=== PATIENT | female | born 1975 | race Caucasian/White ===

== ENCOUNTER 2018-05-21 12:53 | Inpatient (IN) | payer OTHER ==
[~2018-05-21] VITALS: Ht 152.4 cm; Wt 85.5 kg
[2018-05-21 14:54] LABS: UA SPECIFIC GRAVITY <=1.005 (1.005-1.035); microscopic required? YES; urine erythrocyte 2+ (NEGATIVE)
[2018-05-21 15:03] LABS: AMPHETAMINE QUAL UR NONE DETECTED (See below)
[2018-05-21 15:51] LABS: ALBUMIN 3.8 g/dL (3.4-5.0); ALKALINE PHOSPHATASE 175 U/L (46-116); ALT/SGPT 151 U/L (14-59); AST/SGOT 121 U/L (15-37); BILIRUBIN TOTAL 0.35 mg/dL (0.20-1.00); CALCIUM 9.5 mg/dL (8.5-10.1); CARBON DIOXIDE 23.1 mmol/L (21-32); CHLORIDE SERUM 131 mmol/L (98-107); CREATININE SERUM 1.7 mg/dL (0.6-1.0); FREE T4 0.92 ng/dL (0.76-1.46); GFR1 35 mL/min; LIPASE 372 IU/L (73-393); TOTAL PROTEIN, SERUM 7.9 g/dL (6.4-8.2)
[2018-05-21 15:55] LABS: SODIUM SERUM 166 mmol/L (136-145)
[2018-05-21 15:56] LABS: POTASSIUM SERUM 2.7 mmol/L (3.5-5.1)
[2018-05-21 16:15] LABS: PLATELET COUNT 239 x10^3mcL (130-400)
[2018-05-21 16:17] LABS: BASOPHIL % 0 % (0-2); RED CELL DISTRIBUTION WIDTH 14.8 % (11.5-14.5)
[2018-05-21 16:27] LABS: GLUCOSE SERUM 891 mg/dL (74-106)
[2018-05-21 16:29] LABS: OSMOLALITY SERUM 415 mOsm/kg (278-298)
[2018-05-21 17:22] LABS: AMYLASE 28 U/L (25-115); PHOSPHOROUS 1.2 mg/dL (2.5-4.9)
[2018-05-21 17:29] LABS: CHOLESTEROL 245 mg/dL (<200); CHOLESTEROL/HDL RATIO 11.7; HDL CHOLESTEROL 21 mg/dL (40-60); TRIGLYCERIDES 1685 mg/dL (<150)
[2018-05-21 19:35] VITALS: BP 122/83
[2018-05-21 19:50] LABS: CALCIUM 9.5 mg/dL (8.5-10.1); CARBON DIOXIDE 17.7 mmol/L (21-32); CREATININE SERUM 1.6 mg/dL (0.6-1.0); MAGNESIUM 2.9 mg/dL (1.8-2.4); PHOSPHOROUS 1.2 mg/dL (2.5-4.9)
[2018-05-21 19:54] LABS: POTASSIUM SERUM 3.3 mmol/L (3.5-5.1)
[2018-05-21 23:37] VITALS: BP 113/87
[2018-05-22 00:33] LABS: CALCIUM 8.4 mg/dL (8.5-10.1); CARBON DIOXIDE 13.8 mmol/L (21-32); CREATININE SERUM 1.9 mg/dL (0.6-1.0); MAGNESIUM 3.1 mg/dL (1.8-2.4)
[2018-05-22 02:08] LABS: POTASSIUM SERUM 2.3 mmol/L (3.5-5.1)
[2018-05-22 02:09] LABS: PHOSPHOROUS 0.6 mg/dL (2.5-4.9)
[2018-05-22 03:00] VITALS: BP 103/70
[2018-05-22 05:13] LABS: CALCIUM 8.5 mg/dL (8.5-10.1); CARBON DIOXIDE 11.4 mmol/L (21-32); CREATININE SERUM 1.9 mg/dL (0.6-1.0); MAGNESIUM 3.3 mg/dL (1.8-2.4)
[2018-05-22 05:17] LABS: PHOSPHOROUS 0.5 mg/dL (2.5-4.9)
[2018-05-22 05:18] LABS: POTASSIUM SERUM 2.3 mmol/L (3.5-5.1)
[2018-05-22 06:42] LABS: PLATELET COUNT 249 x10^3mcL (130-400)
[2018-05-22 06:51] LABS: BASOPHIL % 0 % (0-2); RED CELL DISTRIBUTION WIDTH 15.3 % (11.5-14.5)
[2018-05-22 07:50] VITALS: BP 136/73
[2018-05-22 09:30] LABS: CALCIUM 9.7 mg/dL (8.5-10.1); CARBON DIOXIDE 10.7 mmol/L (21-32); MAGNESIUM 3.3 mg/dL (1.8-2.4)
[2018-05-22 10:03] LABS: POTASSIUM SERUM 2.8 mmol/L (3.5-5.1)
[2018-05-22 12:40] VITALS: BP 127/72
[2018-05-22 13:46] LABS: CALCIUM 9.8 mg/dL (8.5-10.1); PHOSPHOROUS 2.4 mg/dL (2.5-4.9); POTASSIUM SERUM 3.1 mmol/L (3.5-5.1)
[2018-05-22 13:59] LABS: CARBON DIOXIDE 17.4 mmol/L (21-32)
[2018-05-22 14:08] LABS: MAGNESIUM 4.2 mg/dL (1.8-2.4)
[2018-05-22 16:05] VITALS: BP 106/69
[2018-05-22 17:06] LABS: CALCIUM 8.8 mg/dL (8.5-10.1); CARBON DIOXIDE 15.8 mmol/L (21-32); CREATININE SERUM 2.3 mg/dL (0.6-1.0); PHOSPHOROUS 3.1 mg/dL (2.5-4.9); POTASSIUM SERUM 3.1 mmol/L (3.5-5.1)
[2018-05-22 22:36] LABS: CALCIUM 7.3 mg/dL (8.5-10.1); CARBON DIOXIDE 13.1 mmol/L (21-32); CREATININE SERUM 2.4 mg/dL (0.6-1.0); MAGNESIUM 3.1 mg/dL (1.8-2.4); PHOSPHOROUS 2.9 mg/dL (2.5-4.9); POTASSIUM SERUM 3.7 mmol/L (3.5-5.1)
[2018-05-22 23:49] LABS: CALCIUM 7.2 mg/dL (8.5-10.1); CARBON DIOXIDE 13.6 mmol/L (21-32); CREATININE SERUM 2.3 mg/dL (0.6-1.0); MAGNESIUM 2.9 mg/dL (1.8-2.4); PHOSPHOROUS 2.9 mg/dL (2.5-4.9); POTASSIUM SERUM 3.4 mmol/L (3.5-5.1)
[2018-05-23 04:30] LABS: CALCIUM 7.6 mg/dL (8.5-10.1); CARBON DIOXIDE 17.3 mmol/L (21-32); CREATININE SERUM 2.4 mg/dL (0.6-1.0); MAGNESIUM 2.8 mg/dL (1.8-2.4); POTASSIUM SERUM 3.4 mmol/L (3.5-5.1)
[2018-05-23 06:03] LABS: BASOPHIL % 0.4 % (0-2); PLATELET COUNT 157 x10^3mcL (130-400)
[2018-05-23 06:05] LABS: RED CELL DISTRIBUTION WIDTH 15.6 % (11.5-14.5)
[2018-05-23 07:55] VITALS: BP 140/42
[2018-05-23 08:55] LABS: CALCIUM 7.6 mg/dL (8.5-10.1); CARBON DIOXIDE 16.6 mmol/L (21-32); CREATININE SERUM 2.4 mg/dL (0.6-1.0); MAGNESIUM 2.7 mg/dL (1.8-2.4); PHOSPHOROUS 3.4 mg/dL (2.5-4.9); POTASSIUM SERUM 3.6 mmol/L (3.5-5.1)
[2018-05-23 12:25] VITALS: BP 98/69
[2018-05-23 12:37] LABS: CALCIUM 7.5 mg/dL (8.5-10.1); CARBON DIOXIDE 20.4 mmol/L (21-32); CREATININE SERUM 2.5 mg/dL (0.6-1.0); MAGNESIUM 2.5 mg/dL (1.8-2.4); POTASSIUM SERUM 3.7 mmol/L (3.5-5.1)
[2018-05-23 14:16] VITALS: BP 98/69
[2018-05-23 16:30] VITALS: BP 100/60
[2018-05-23 16:59] LABS: CARBON DIOXIDE 20.6 mmol/L (21-32); CREATININE SERUM 2.5 mg/dL (0.6-1.0); MAGNESIUM 2.3 mg/dL (1.8-2.4); PHOSPHOROUS 2.6 mg/dL (2.5-4.9); POTASSIUM SERUM 3.6 mmol/L (3.5-5.1)
[2018-05-23 19:43] VITALS: BP 110/71
[2018-05-23 20:21] LABS: CALCIUM 6.9 mg/dL (8.5-10.1); CARBON DIOXIDE 21.5 mmol/L (21-32); CREATININE SERUM 2.5 mg/dL (0.6-1.0); MAGNESIUM 2.4 mg/dL (1.8-2.4); PHOSPHOROUS 3.2 mg/dL (2.5-4.9); POTASSIUM SERUM 3.5 mmol/L (3.5-5.1)
[2018-05-23 23:41] VITALS: BP 108/75
[2018-05-24 03:23] VITALS: BP 131/90
[2018-05-24 05:07] LABS: BASOPHIL % 0.3 % (0-2)
[2018-05-24 05:08] LABS: PLATELET COUNT 129 x10^3mcL (130-400)
[2018-05-24 07:04] LABS: CALCIUM 6.9 mg/dL (8.5-10.1); CARBON DIOXIDE 21.1 mmol/L (21-32); CREATININE SERUM 2.2 mg/dL (0.6-1.0); MAGNESIUM 2.5 mg/dL (1.8-2.4); PHOSPHOROUS 3.5 mg/dL (2.5-4.9); POTASSIUM SERUM 3.7 mmol/L (3.5-5.1)
[2018-05-24 07:21] VITALS: BP 125/66
[2018-05-24 09:11] VITALS: Ht 152.4 cm; Wt 85.5 kg
[2018-05-24 11:46] VITALS: BP 106/75
[2018-05-24 15:31] VITALS: BP 93/60
[2018-05-24 19:50] VITALS: BP 104/70
[2018-05-25 06:05] VITALS: BP 111/75
[2018-05-25 06:57] LABS: CALCIUM 7.7 mg/dL (8.5-10.1); CARBON DIOXIDE 23.1 mmol/L (21-32); CREATININE SERUM 1.6 mg/dL (0.6-1.0); POTASSIUM SERUM 3.2 mmol/L (3.5-5.1)
[2018-05-25 07:57] LABS: BASOPHIL % 0.5 % (0-2); PLATELET COUNT 121 x10^3mcL (130-400); RED CELL DISTRIBUTION WIDTH 15.5 % (11.5-14.5)
[2018-05-25 09:10] VITALS: BP 102/66
[2018-05-25 12:13] VITALS: BP 98/54
[2018-05-25 17:31] VITALS: BP 99/68
[2018-05-25 19:05] LABS: UA SPECIFIC GRAVITY <=1.005 (1.005-1.035); microscopic required? YES; urine erythrocyte 3+ (NEGATIVE)
[2018-05-25 21:23] VITALS: BP 98/55
[2018-05-26 05:47] VITALS: BP 94/62
[2018-05-26 06:45] LABS: BASOPHIL % 0.5 % (0-2)
[2018-05-26 06:52] LABS: PLATELET COUNT 114 x10^3mcL (130-400); RED CELL DISTRIBUTION WIDTH 15.7 % (11.5-14.5)
[2018-05-26 07:09] LABS: CALCIUM 8.1 mg/dL (8.5-10.1); CARBON DIOXIDE 22.2 mmol/L (21-32); CREATININE SERUM 1.4 mg/dL (0.6-1.0); MAGNESIUM 2.8 mg/dL (1.8-2.4); PHOSPHOROUS 2.9 mg/dL (2.5-4.9); POTASSIUM SERUM 3.4 mmol/L (3.5-5.1)
[2018-05-26 09:38] VITALS: BP 99/78
[2018-05-26 13:10] VITALS: BP 95/75
[2018-05-26 17:06] VITALS: BP 109/71
[2018-05-26 21:09] VITALS: BP 101/69
[2018-05-27 03:17] VITALS: BP 100/69
[2018-05-27 05:44] VITALS: BP 105/72
[2018-05-27 06:30] LABS: BASOPHIL % 0.1 % (0-2)
[2018-05-27 06:37] LABS: CALCIUM 8.7 mg/dL (8.5-10.1); CARBON DIOXIDE 22.5 mmol/L (21-32); CREATININE SERUM 1.3 mg/dL (0.6-1.0); MAGNESIUM 2.6 mg/dL (1.8-2.4); POTASSIUM SERUM 4.5 mmol/L (3.5-5.1)
[2018-05-27 08:52] LABS: RED CELL DISTRIBUTION WIDTH 14.9 % (11.5-14.5)
[2018-05-27 08:54] LABS: PLATELET COUNT 131 x10^3mcL (130-400)
[2018-05-27 09:36] VITALS: BP 94/63
[2018-05-27 13:27] VITALS: BP 100/65
[2018-05-27 17:03] VITALS: BP 106/69
[2018-05-27 20:44] VITALS: BP 110/62
[2018-05-28 05:20] VITALS: BP 108/75
[2018-05-28 06:38] LABS: BASOPHIL % 0.1 % (0-2)
[2018-05-28 06:45] LABS: PLATELET COUNT 115 x10^3mcL (130-400); RED CELL DISTRIBUTION WIDTH 14.7 % (11.5-14.5)
[2018-05-28 08:10] LABS: CARBON DIOXIDE 19.6 mmol/L (21-32); CREATININE SERUM 1.6 mg/dL (0.6-1.0); MAGNESIUM 2.6 mg/dL (1.8-2.4); PHOSPHOROUS 4.9 mg/dL (2.5-4.9); POTASSIUM SERUM 3.3 mmol/L (3.5-5.1)
[2018-05-28 09:14] VITALS: BP 111/76
[2018-05-28 12:39] VITALS: BP 113/72
[2018-05-28 16:46] VITALS: BP 106/76
[2018-05-28 20:44] VITALS: BP 101/68
[2018-05-29 05:31] VITALS: BP 98/65
[2018-05-29 05:46] LABS: BASOPHIL % 0.3 % (0-2)
[2018-05-29 05:50] LABS: PLATELET COUNT 123 x10^3mcL (130-400)
[2018-05-29 05:54] LABS: CALCIUM 8.8 mg/dL (8.5-10.1); CARBON DIOXIDE 21.7 mmol/L (21-32); CREATININE SERUM 1.4 mg/dL (0.6-1.0); MAGNESIUM 2.4 mg/dL (1.8-2.4); PHOSPHOROUS 4.4 mg/dL (2.5-4.9); POTASSIUM SERUM 3.8 mmol/L (3.5-5.1)
[2018-05-29 08:37] VITALS: BP 123/76
[2018-05-29 11:37] VITALS: BP 111/79
[2018-05-29 16:12] VITALS: BP 116/87
[2018-05-29 20:38] VITALS: BP 109/79
[2018-05-30 05:44] VITALS: BP 105/75
[2018-05-30 08:57] LABS: BASOPHIL % 0.5 % (0-2); PLATELET COUNT 153 x10^3mcL (130-400); RED CELL DISTRIBUTION WIDTH 14.1 % (11.5-14.5)
[2018-05-30 09:02] VITALS: BP 113/81
[2018-05-30 09:20] LABS: CALCIUM 9.7 mg/dL (8.5-10.1); CREATININE SERUM 1.4 mg/dL (0.6-1.0); POTASSIUM SERUM 4.1 mmol/L (3.5-5.1)
[2018-05-30 09:23] LABS: MAGNESIUM 2.6 mg/dL (1.8-2.4); PHOSPHOROUS 4.1 mg/dL (2.5-4.9)
[2018-05-30 12:02] VITALS: BP 118/79
[2018-05-30 16:20] VITALS: BP 114/72
[2018-05-30 18:44] LABS: BILIRUBIN TOTAL 0.33 mg/dL (0.20-1.00); CALCIUM 9.5 mg/dL (8.5-10.1); CARBON DIOXIDE 25.8 mmol/L (21-32); CREATININE SERUM 1.3 mg/dL (0.6-1.0); POTASSIUM SERUM 3.2 mmol/L (3.5-5.1); TOTAL PROTEIN, SERUM 7.2 g/dL (6.4-8.2)
[2018-05-30 21:07] VITALS: BP 121/75
[2018-05-31 05:33] VITALS: BP 108/70
[2018-05-31 06:48] LABS: CALCIUM 9.8 mg/dL (8.5-10.1); CARBON DIOXIDE 21.8 mmol/L (21-32); CREATININE SERUM 1.3 mg/dL (0.6-1.0); MAGNESIUM 2.7 mg/dL (1.8-2.4); PHOSPHOROUS 2.9 mg/dL (2.5-4.9); POTASSIUM SERUM 3.7 mmol/L (3.5-5.1)
[2018-05-31 06:57] LABS: BASOPHIL % 0.2 % (0-2); PLATELET COUNT 176 x10^3mcL (130-400)
[2018-05-31 07:09] LABS: RED CELL DISTRIBUTION WIDTH 14.7 % (11.5-14.5)
[2018-05-31 09:45] VITALS: BP 118/75
[2018-05-31 14:10] VITALS: BP 125/76
[2018-05-31 14:38] LABS: CALCIUM 8.2 mg/dL (8.5-10.1); CARBON DIOXIDE 22.2 mmol/L (21-32); CREATININE SERUM 1.2 mg/dL (0.6-1.0); POTASSIUM SERUM 3.3 mmol/L (3.5-5.1)
[2018-05-31 18:03] VITALS: BP 128/78
[2018-05-31 20:41] VITALS: BP 106/71
[2018-06-01 06:05] VITALS: BP 111/64
[2018-06-01 06:14] LABS: BASOPHIL % 0.1 % (0-2); PLATELET COUNT 166 x10^3mcL (130-400)
[2018-06-01 06:50] LABS: CALCIUM 8.7 mg/dL (8.5-10.1); CARBON DIOXIDE 22.6 mmol/L (21-32); CREATININE SERUM 1.1 mg/dL (0.6-1.0); POTASSIUM SERUM 3.2 mmol/L (3.5-5.1)
[2018-06-01 07:16] LABS: RED CELL DISTRIBUTION WIDTH 14.6 % (11.5-14.5)
[2018-06-01 09:24] VITALS: BP 123/77
[2018-06-01] MEDS ORDERED: LEVEMIR100 U/M1 SC (11:16)
[2018-06-01 12:42] VITALS: BP 109/79
[2018-06-01 17:06] VITALS: BP 122/78
[2018-06-01 21:32] VITALS: BP 98/63
[2018-06-02 05:55] VITALS: BP 112/74
[2018-06-02 08:39] LABS: CALCIUM 8.3 mg/dL (8.5-10.1); CARBON DIOXIDE 23.6 mmol/L (21-32); CHLORIDE SERUM 104 mmol/L (98-107); CREATININE SERUM 0.9 mg/dL (0.6-1.0); GFR1 > 60 mL/min; GLUCOSE SERUM 167 mg/dL (74-106); POTASSIUM SERUM 3.6 mmol/L (3.5-5.1); SODIUM SERUM 139 mmol/L (136-145)
[2018-06-02 08:47] LABS: BASOPHIL % 0.3 % (0-2); PLATELET COUNT 189 x10^3mcL (130-400)
[2018-06-02 08:51] LABS: RED CELL DISTRIBUTION WIDTH 14.7 % (11.5-14.5)
[2018-06-02 09:40] VITALS: BP 112/77
[2018-06-02 13:29] VITALS: BP 109/76
[2018-06-02 13:47] VITALS: BP 109/76
== END 2018-06-02 16:35 | disposition home or self-care (01) | DRG 871 ==
LOC: ED 12:53 → DU 15:54 → IC 15:54 → DU 05-24 19:38
PROVIDERS: Emergency Medicine; Family Medicine; Internal Medicine; Internal Medicine Infectious Disease
PROC: 05HM33Z Insertion of Infusion Device into Right Internal Jugular Vein, Percutaneous Approach (ICD-10-PCS; principal; 2018-05-22)
PROC: B543ZZA Ultrasonography of Right Jugular Veins, Guidance (ICD-10-PCS; 2018-05-22)
DX: A41.9 Sepsis, unspecified organism (principal); E11.00 Type 2 diabetes mellitus with hyperosmolarity without nonketotic hyperglycemic-hyperosmolar coma (NKHHC); G93.41 Metabolic encephalopathy; N17.0 Acute kidney failure with tubular necrosis; J96.01 Acute respiratory failure with hypoxia; E11.10 Type 2 diabetes mellitus with ketoacidosis without coma; J69.0 Pneumonitis due to inhalation of food and vomit; E87.0 Hyperosmolality and hypernatremia; K56.7 Ileus, unspecified; E87.2 Acidosis; G72.81 Critical illness myopathy; R65.20 Severe sepsis without septic shock; E11.65 Type 2 diabetes mellitus with hyperglycemia; E11.21 Type 2 diabetes mellitus with diabetic nephropathy; G47.33 Obstructive sleep apnea (adult) (pediatric); E87.6 Hypokalemia; E86.0 Dehydration; E83.39 Other disorders of phosphorus metabolism; E78.1 Pure hyperglyceridemia; I12.9 Hypertensive chronic kidney disease with stage 1 through stage 4 chronic kidney disease, or unspecified chronic kidney disease; N18.3 Chronic kidney disease, stage 3 (moderate); R74.0 Nonspecific elevation of levels of transaminase and lactic acid dehydrogenase [LDH]; E66.9 Obesity, unspecified; Z68.38 Body mass index [BMI] 38.0-38.9, adult
CPT/HCPCS: 36556; 36600; 82962; 83880; 84439; 86644; 86645; 94150; 97110-GP; 97116-GP; 97530-GP; 97535-GP; G0480; J1170; J1450; J1642; J1815; J1885; J1956; J2001; J2060; J2405; J2543; J2597; J2765; J3370; J3480; J3490; J7030; J7040; J7042; J7060; J7070; J7620; J8597; Q0092

== ENCOUNTER 2018-10-26 13:07 | Inpatient (IN) | payer MEDICAID ==
[~2018-10-26] VITALS: Ht 149.9 cm; Wt 69.9 kg
[~2018-10-26 13:07] MED LIST: LEVEMIR100 U/M1 SC
[2018-10-26 13:28] VITALS: Ht 149.9 cm; Wt 69.9 kg
--- NOTE | 2018-10-26 14:00 | NUR ---
PT TO ED FOR EVAL OF INCREASED GENERALIZED WEAKNESS WITH NAUSEA AND VOMITING X 6 DAYS. PT STATES SHE HAS ALSO HAD AN INCREASE IN THIRST WITH INCREASE IN URINATION. SHE ALSO STATES SHE HAS HAD INTENSE VAGINAL ITCHING. SKINS APPEAR WARMD AND DRY. LIPS APPEAR DRY WITH. PT AWAKE AND ALERT.BREATHING UNLABORED. MSE COMPLETED BY DR. ELIZABETH.
--- NOTE | 2018-10-26 15:04 | NUR ---
PT AMBULATED TO AND FROM BATHROOM WITH STEADY GAIT. STATES SHE IS FEELING "A LITTLE BETTER" REQUESTING WATER. ICE CHIPS APPROVED BY DR. ELIZABETH. PT GIVEN ICE CHIPS. PT PLACED BACK ON CM. NO DISTRESS.
[2018-10-26 15:33] LABS: UA SPECIFIC GRAVITY <=1.005 (1.005-1.035); microscopic required? YES; urine erythrocyte 3+ (NEGATIVE)
--- NOTE | 2018-10-26 16:10 | NUR ---
PT REMAINS AWAKE ALERT AND ORIENTED. BREATHING UNLABORD. PT AMBULATED TO BATHROOM WITH STEADY GAIT. ACCOMPANIED BY .
--- NOTE | 2018-10-26 16:23 | NUR ---
PT RETURNED FROM BATHROOM. PLACED BACK ON .
[2018-10-26 16:33] LABS: BASOPHIL % 0.2 % (0-2); PLATELET COUNT 131 x10^3mcL (130-400)
[2018-10-26 16:40] LABS: RED CELL DISTRIBUTION WIDTH 14.7 % (11.5-14.5)
--- NOTE | 2018-10-26 17:03 | NUR ---
RESTING COMFORTABLY ON GURNEY BREATHING EVEN UNLABORED. NO DISTRESS. AT BEDSIDE. CONTINUE TO MONITOR.
[2018-10-26 17:06] LABS: ALBUMIN 3.4 g/dL (3.4-5.0); BILIRUBIN TOTAL 0.51 mg/dL (0.20-1.00); CALCIUM 9.1 mg/dL (8.5-10.1); CARBON DIOXIDE 25.6 mmol/L (21-32); CREATININE SERUM 1.5 mg/dL (0.6-1.0); POTASSIUM SERUM 4.2 mmol/L (3.5-5.1)
[2018-10-26 17:09] LABS: TOTAL PROTEIN, SERUM 8.5 g/dL (6.4-8.2)
--- NOTE | 2018-10-26 18:56 | NUR ---
PT SLEEPING AT THIS TIME. BREATHING EVEN UNLABORED. IV INSULIN DRIP INFUSING. NO S/S OF INFILTRATION. FAMILY MEMBER AT BEDSIDE.
[2018-10-26] MEDS ORDERED: METFORMIN HCL1000 MG PO (19:12)
--- NOTE | 2018-10-26 19:16 | NUR ---
RECIEVED PT REPORT FROM PIA HODGES TO RESUME PRIMARY CARE
[2018-10-26 19:25] LABS: CHOLESTEROL 224 mg/dL (<200); HDL CHOLESTEROL 16 mg/dL (40-60); TRIGLYCERIDES 1304 mg/dL (<150)
--- NOTE | 2018-10-26 19:30 | NUR ---
PT ABLE TO AMBULATE TO RESTROOM WITH ASSITANCE FROM FAMILY.
--- NOTE | 2018-10-26 19:39 | NUR ---
PT LAYING IN ED GURNEY. PT IS ASLEEP BUT EASILY AROUSABLE. PT RESPS ARE E/U. PT HAS COMFORT MEASURES IN PLACE. NO DISTRESS NOTED
--- NOTE | 2018-10-26 20:23 | NUR ---
CALLED AND GAVE REPROT TO RN FOR PT TO BE ADMITTED TO ICU
[2018-10-26 20:29] LABS: CALCIUM 9.2 mg/dL (8.5-10.1); CREATININE SERUM 1.5 mg/dL (0.6-1.0); MAGNESIUM 2.8 mg/dL (1.8-2.4); PHOSPHOROUS 1.4 mg/dL (2.5-4.9); POTASSIUM SERUM 3.1 mmol/L (3.5-5.1)
--- NOTE | 2018-10-26 20:30 | NUR ---
PT TRANSFERRED FROM ER VIA [facility] ACCOMPANIED BY RN AND EMT. PT AMBULATED TO ICU BED WITH ASSISTANCE, STEADY GAIT NOTED. PT IS DROWSY BUT AROUSABLE. AZERI SPEAKING. FAMILY MEMBERS AT BEDSIDE. VITAL SIGNS UPON ARRIVAL TEMP 101.6, B/P 122/68 MAP 84, HR 131, RR 20, O2 SAT 97% ON ROOM AIR. COOLING MEASURES IN PLACE, TYLENOL PROVIDED. C/O 8/10 BLQ ABD PAIN. ABD DISTENDED, SOFT, TENDER TO TOUCH. DENIES ANY N/V/D AT THIS TIME. PT GROANING D/T PAIN AND FEELING UNCOMFORTABLE. NO SOB NOTED, RESPS E/U ON ROOM AIR. CHEST RISE EQUAL AND SYMMETRICAL. LUNG SOUNDS CLEAR BRODY. SKIN INTACT. IV TO L HAND G 20 AND RAC G 20 INTACT AND PATENT, DSG CDI. IVF NS INFUSING @ 250 ML/HR. INSULIN GTT INFUSING @ 0.1 UNITS/KG/HR. GEN WEAKNESS NOTED. ABLE TO MOVE ALL EXT. VOIDS FREELY TO BSC. PT ABLE TO REPOSITION SELF. PT TEACHING PROVIDED REGARDING DKA PROTOCOL AND PLAN OF CARE, VERBALIZED UNDERSTANDING. INSTRUCTED TO CALL FOR ANY ASSISTANCE. CALL LIGHT WITHIN REACH. WILL CONTINUE TO MONITOR.
--- NOTE | 2018-10-26 20:35 | NUR ---
PT ADMITTED TO ICU. PT WHEELED OUT OF ED VIA ED GURNEY. PT WAS ESCORTED BY EMT AND RN. NO INCIDENCE NOTED
--- NOTE | 2018-10-26 21:10 | NUR ---
PT AWAKE, ASSISTED TO BSC TO VOID. NOTED WITH HEMATURIA. PT STATES NOT HAVING MENSTRUAL PERIOD AND MIGHT BE GOING THROUGH MENOPAUSE. DR RUIZ MADE AWARE.
[2018-10-26 21:28] VITALS: BP 122/68
--- NOTE | 2018-10-26 21:30 | NUR ---
DR RUIZ MADE AWARE REGADING ELEVATED NA LEVEL AND K+ LEVEL. DR RUIZ STATES OKAY TO GIVE FREE H20
--- NOTE | 2018-10-26 21:45 | NUR ---
PT WITH C/O VAGINAL BURINIG, ITCHING, AND BLOODY URINE, BLQ PAIN WITH DISTENDED ABD. DR RUIZ MADE AWARE REGARDING POSITIVE UA FOR BACTERIA AND FEVER. DR RUIZ STATES WILL ORDER ATB AND SEE PATIENT.
--- NOTE | 2018-10-26 22:00 | NUR ---
DR RUIZ AT BEDSIDE, UPDATED ON STATUS, EXPLAINED TO PT PLAN OF CARE DURING STAY AND ALL QUESTIONS AND CONCERNS ADDRESSED.
--- NOTE | 2018-10-26 22:51 | NUR ---
BS 174, PT PROVIDED SANDWICH, ALEJA CRACKERS, AND APPLE JUICE. ATE 100% WITHOUT ANY DIFFICULTY. DR RUIZ MADE AWARE TO CHANGE IVF.
[2018-10-26 23:51] VITALS: BP 98/66
--- NOTE | 2018-10-27 00:03 | NUR ---
PT ASSISTED TO BSC, SOFT BROWN BM NOTED.
--- NOTE | 2018-10-27 00:03 | NUR ---
LAB AT BEDSIDE
--- NOTE | 2018-10-27 00:15 | NUR ---
BS 453, DR RUIZ MADE AWARE. ORDER GIVEN TO KEEP PT NPO, INCREASE INSULIN GTT TO 0.1 UNITS/KG/HR, CHANGE IVF TO 1/2 NS @ 250ML/HR.
[2018-10-27 01:09] LABS: CALCIUM 8.8 mg/dL (8.5-10.1); CARBON DIOXIDE 20.9 mmol/L (21-32); CREATININE SERUM 1.5 mg/dL (0.6-1.0); MAGNESIUM 2.2 mg/dL (1.8-2.4); PHOSPHOROUS 1.6 mg/dL (2.5-4.9); POTASSIUM SERUM 3.3 mmol/L (3.5-5.1)
[2018-10-27 03:18] VITALS: BP 98/66
--- NOTE | 2018-10-27 04:13 | NUR ---
BS 174, IVF CHANGED TO D5W @ 150ML/HR, INSULIN GTT TITRATED TO 0.05 UNITS/KG/HR. DR RUIZ MADE AWARE.
[2018-10-27 05:00] LABS: CALCIUM 8.7 mg/dL (8.5-10.1); CREATININE SERUM 1.2 mg/dL (0.6-1.0); MAGNESIUM 2.4 mg/dL (1.8-2.4); PHOSPHOROUS 1.6 mg/dL (2.5-4.9); POTASSIUM SERUM 3.6 mmol/L (3.5-5.1)
--- NOTE | 2018-10-27 07:33 | NUR ---
PT WAS ABLE TO AMBULATE WITH STEADY GAIT TO SINK FOR MORNING CARE AND BEDSIDE COMMODE. SET BREAKFAST TRAY AT BEDSIDE. AT BEDSIDE.
[2018-10-27 08:10] VITALS: BP 113/67
[2018-10-27 08:41] LABS: BASOPHIL % 0.3 % (0-2)
[2018-10-27 08:50] LABS: PLATELET COUNT 125 x10^3mcL (130-400)
--- NOTE | 2018-10-27 08:54 | NUR ---
PATIENT'S BEDSIDE GLUCOSE 323. IVF OF D5W TITRATED FROM 100 ML/HR TO 75 ML/HR. PATIENT ENCOURAGED TO DRINK PLENTY OF WATER.
[2018-10-27 08:59] LABS: CALCIUM 9.3 mg/dL (8.5-10.1); CARBON DIOXIDE 25.6 mmol/L (21-32); CREATININE SERUM 1.2 mg/dL (0.6-1.0); POTASSIUM SERUM 4.3 mmol/L (3.5-5.1)
--- NOTE | 2018-10-27 09:00 | NUR ---
PATIENT ASSISTED TO BEDSIDE COMMODE WITHOUT INCIDENT. PATIENT REQUESTING MEDICATION FOR VAGINAL DISCOMFORT.
--- NOTE | 2018-10-27 09:40 | NUR ---
INSULIN DRIP OFF, SWITCHED D5W TO 1/2NS AT 125ML/HR TO AND.
--- NOTE | 2018-10-27 10:25 | NUR ---
DR. SALINAS AT BEDSIDE, ASSESSING PT AND UPDATING PLAN OF CARE. PT WILL BE TRANSFER TO [facility].
--- NOTE | 2018-10-27 12:00 | NUR ---
REPORT GIVEN TO RUTH HODGES, PT WILL BE TRANSFERRING TO M/S TO ROOM 256B BY WHEEL CHAIR ON ROOM AIR.
[2018-10-27 12:01] LABS: CALCIUM 8.5 mg/dL (8.5-10.1); CARBON DIOXIDE 26.3 mmol/L (21-32); CREATININE SERUM 1.1 mg/dL (0.6-1.0); MAGNESIUM 1.6 mg/dL (1.8-2.4); PHOSPHOROUS 2.6 mg/dL (2.5-4.9); POTASSIUM SERUM 3.8 mmol/L (3.5-5.1)
--- NOTE | 2018-10-27 12:41 | NUR ---
AAO TIMES 4. NO TELE. ARRIVED FROM ICU BED 6 WITH MIN RN AT AROUND 1220. IV SITE LEFT HAND PATENT, CDI. COOPERATIVE. NO C/O PAIN. DTR AT BEDSIDE. AMBUALTORY, BRP WITHOUT DIFFICULTIES.
--- NOTE | 2018-10-27 17:54 | NUR ---
AAO TIMES 4. COOPERATIVE. FAMILY AT BEDSIDE, SUPPORTIVE. NO TELE, MED SURG PATIENT. NO C/O PAIN. SHE WAS C/O TINGLING TO HER FACE AND HER LEGS, JOHN TALKED TO HER ABOUT DIABETES AND DIABETIC NEUROPATHY, AND THAT IT IS IMPORTANT TO KEEP HER BLOOD SUGAR DOWN TO PREVENT FURTHER DAMAGE TO NERVES. IV SITE CDI.
[2018-10-27 20:39] VITALS: BP 92/55
[2018-10-28 05:25] VITALS: BP 95/58
--- NOTE | 2018-10-28 05:30 | NUR ---
PT IS RESTING AND ABLE TO AMBULATE TO THE BATHROOM. NO COMPLAINTS OF PAIN. MAGNESIUM 1.6 WAS REPLACED WITH 400MG OG MAG OX PER DR RUIZ.
[2018-10-28 06:06] LABS: BASOPHIL % 0.4 % (0-2)
[2018-10-28 06:12] LABS: CALCIUM 8.4 mg/dL (8.5-10.1); CARBON DIOXIDE 29.2 mmol/L (21-32); CHLORIDE SERUM 122 mmol/L (98-107); GFR1 > 60 mL/min; GLUCOSE SERUM 191 mg/dL (74-106); POTASSIUM SERUM 3.6 mmol/L (3.5-5.1); SODIUM SERUM 158 mmol/L (136-145)
[2018-10-28 06:23] LABS: PLATELET COUNT 102 x10^3mcL (130-400); RED CELL DISTRIBUTION WIDTH 15.1 % (11.5-14.5)
[2018-10-28 09:51] VITALS: BP 96/57
--- NOTE | 2018-10-28 09:53 | NUR ---
AAO TIMES 4. NO TELE, MED SURG PATIENT. LUNGS CTA. NO SOB. O2 SAT ON RA 95%. BS'S ACTIVE TIMES 4. PERIPHERAL PULSES PALPBLE. NO EDEMA. IV SITE CDI. C/O ITCHY VULVA AND ANAL AREA, APPLIED MYSOSTATIN CREAM TO SKIN, IT WAS TENDER TO TOUCH (SHE IS UNABLE TO REACH HER ANAL AND VULVA AREA, HER ARMS DONT REACH THAT FAR)
[2018-10-28 17:50] VITALS: BP 106/65
--- NOTE | 2018-10-28 18:18 | NUR ---
AAO TIMES 4. NO TELE. MED SURG PATIENT. NO C/O PAIN. NO SOB. COOPERATIVE. IV SITE TO RIGHT HAND PATENT, CDI. AMBULATORY, AMBULATED AROUND UPSTAIRS TIMES 1 LAP. VARIOUS FAMILY HAS BEEN VISITING OFF AND ON TODAY. NO SOB.
--- NOTE | 2018-10-28 19:30 | NUR ---
RECIEVED PATIENT AT START OF SHIFT AWAKE, A/O X4, NO SOB ON RA, AND NO COMPLAINT OF PAIN. PATIENT'S LUNGS ARE CLEAR BILATERALLY, BOWEL SOUNDS ACTIVE, ABDOMEN DISTENDED, SOFT AND ROUND. NO EDEMA NOTED IN EXTREMETIES, PULSES STRONG. IV INTACT INFUSING D5 WITHOUT REDNESS OR EDEMA. PATIENT IS HAVING EXCESSIVE THIRST. WILL CONTINUE TO MONITOR.
[2018-10-28 21:09] VITALS: BP 95/58
--- NOTE | 2018-10-29 01:00 | NUR ---
PATIENT'S EYES ARE CLOSED, BRETHS EVEN AND REGULAR. NO SOB ON RA, AND NO COMPLAINT OF PAIN. WILL CONTINUE TO MONITOR.
--- NOTE | 2018-10-29 03:59 | NUR ---
DR. BABCOCK WAS CALLED TO CLARIFY D5 @100 FLUID ORDERS SINCE PATIENT'S BLOOD SUGARS HAVE BEEN HIGH. LAST WAS 240. STATED HE WOULD REVIEW FLUID ORDERS AND ADJUST OCCORDING TO LABS.
[2018-10-29 05:08] VITALS: BP 98/63
--- NOTE | 2018-10-29 06:54 | NUR ---
NO SIGNIFICANT EVENTS THIS SHIFT, WILL ENDORSE CARE TO MORNING NURSE.
[2018-10-29 06:59] VITALS: BP 103/51
[2018-10-29 07:04] LABS: BASOPHIL % 0.3 % (0-2)
[2018-10-29 07:08] LABS: PLATELET COUNT 82 x10^3mcL (130-400); RED CELL DISTRIBUTION WIDTH 14.8 % (11.5-14.5)
[2018-10-29 07:13] LABS: CREATININE SERUM 0.9 mg/dL (0.6-1.0); GFR1 > 60 mL/min
[2018-10-29 07:24] LABS: CALCIUM 8.7 mg/dL (8.5-10.1); CARBON DIOXIDE 27.4 mmol/L (21-32); CHLORIDE SERUM 121 mmol/L (98-107); GLUCOSE SERUM 339 mg/dL (74-106); MAGNESIUM 2.5 mg/dL (1.8-2.4); PHOSPHOROUS 4.1 mg/dL (2.5-4.9); POTASSIUM SERUM 3.5 mmol/L (3.5-5.1); SODIUM SERUM 157 mmol/L (136-145)
[2018-10-29 07:27] VITALS: BP 100/57
--- NOTE | 2018-10-29 07:40 | NUR ---
RECEIVED PT RESTING IN BED. NO ACUTE DISTRESS. ASLEEP, AROUSABLE. BREATHING EVEN AND UNLABORED ON RA. IVF INFUSING, NO REDNESS OR SWELLING TO IV SITE. BED IN LOW POSITION, CALL LIGHT WITHIN REACH. WILL CONTINUE TO MONITOR.
--- NOTE | 2018-10-29 13:12 | NUR ---
PT SITTING UP IN BED. NO ACUTE DISTRESS. EATING LUNCH. RESP EVEN AND UNLABORED ON RA. NO C/O PAIN. IVF INFUSING, NO REDNESS OR SWELLING. CALL LIGHT WITHIN REACH. WILL CONTINUE TO MONITOR.
--- NOTE | 2018-10-29 13:27 | NUR ---
PT AMBULATING IN HALLWAY WITH WALKER, NO ACUTE DISTRESS. FAMILY WITH PT. WILL CONTINUE TO MONITOR.
[2018-10-29 15:31] VITALS: BP 101/66
--- NOTE | 2018-10-29 18:09 | NUR ---
PT RESTING IN BED. NO ACUTE DISTRESS. NO C/O PAIN. RESP EVEN AND UNLABORED ON RA. IVF INFUSING TO R HAND, NO REDNESS OR SWELLING. FAMILY AT BEDSIDE. BED IN LOW POSITION, CALL LIGHT WITHIN REACH. WILL ENDORSE TO ONCOMING SHIFT.
--- NOTE | 2018-10-29 20:58 | NUR ---
PT CURRENTLY RESTING IN BED, NO ACUTE DISTRESS. A/O X4. NO TELE, MED/SURG. DENIES CHEST PAIN. PULSES PALPABLE IN ALL EXTREMITIES, NO EDEMA NOTED. LUNG SOUNDS CTA BILATERALLY, DENIES SOB. BOWEL SOUNDS ACTIVE, LAST BM 10/28/18. ABD SLIGHTLY DISTENDED. VOIDING WELL. AMBULATORY. SKIN INTACT. IV PATENT AND INTACT. BED IN LOWEST POSITION, SIDE RAILS UP X2, CALL LIGHT WITHIN REACH. WILL CONTINUE TO MONITOR.
[2018-10-29 21:03] VITALS: BP 102/64
--- NOTE | 2018-10-30 01:30 | NUR ---
PT CURRENTLY RESTING IN BED, NO ACUTE DISTRESS. WILL CONTINUE TO MONITOR.
[2018-10-30 06:21] VITALS: BP 94/52
--- NOTE | 2018-10-30 06:26 | NUR ---
PT SLEPT PERIODICALLY THROUGHOUT NIGHT, NO ACUTE DISTRESS. ALL NEEDS MET AND ATTENDED TO. NO SIGNIFICANT CHANGES. IV PATENT AND INTACT. BED IN LOWEST POSITION, SIDE RAILS UP X2, CALL LIGHT WITHIN REACH. WILL ENDORSE CARE TO ONCOMING NURSE.
[2018-10-30 06:35] LABS: BASOPHIL % 0.4 % (0-2)
[2018-10-30 06:57] LABS: RED CELL DISTRIBUTION WIDTH 14.6 % (11.5-14.5)
[2018-10-30 06:58] LABS: PLATELET COUNT 88 x10^3mcL (130-400)
[2018-10-30 07:17] LABS: CALCIUM 8.8 mg/dL (8.5-10.1); CARBON DIOXIDE 30.7 mmol/L (21-32); CHLORIDE SERUM 112 mmol/L (98-107); CREATININE SERUM 0.9 mg/dL (0.6-1.0); GFR1 > 60 mL/min; GLUCOSE SERUM 255 mg/dL (74-106); POTASSIUM SERUM 3.2 mmol/L (3.5-5.1); SODIUM SERUM 150 mmol/L (136-145)
--- NOTE | 2018-10-30 07:32 | NUR ---
RECEIVED PT IN NO ACUTE DISTRESS. ASLEEP BUT EASILY AROUSABLE. RESP EVEN AND UNLABORED ON RA. NO S/S PAIN. ABD SLIGHTLY DISTENDED. IVF INFUSING, NO REDNESS OR SWELLING NOTED. BED IN LOW POSITION, CALL LIGHT WITHIN REACH. WILL CONTINUE TO MONITOR.
[2018-10-30 09:48] VITALS: BP 100/65
--- NOTE | 2018-10-30 12:41 | NUR ---
PT RESTING IN BED. NO ACUTE DISTRESS. AAOX4. NO C/O HEADACHE. RESP EVEN AND UNLABORED ON RA. IVF INFUSING, NO REDNESS OR SWELLING. PT REQUESTED TO HAVE SHOWER AFTER LUNCH. CALL LIGHT WITHIN REACH. WILL CONTINUE TO MONITOR.
--- NOTE | 2018-10-30 17:38 | NUR ---
PT C/O PAIN TO R HAND IV. IV DC'D WITH CATHETER INTACT. NEW IV STARTED ON L HAND 24G, FLUSHED WITH 10 ML NS.
[2018-10-30 17:40] VITALS: BP 99/50
--- NOTE | 2018-10-30 18:38 | NUR ---
PT RESTING IN BED. NO ACUTE DISTRESS. AAOX4. RESP EVEN AND UNLABORED ON RA. NO C/O PAIN. IVF INFUSING, NO REDNESS OR SWELLING. PT HAD A SHOWER, NEW GOWN GIVEN. BED IN LOW POSITION, CALL LIGHT WITHIN REACH. WILL ENDORSE TO ONCOMING SHIFT.
--- NOTE | 2018-10-30 19:21 | NUR ---
RECEIVED PT FROM PREVIOUS SHIFT. PT A/OX4. DENIES PAIN. DENIES SOB ON RA. IV TO L HAND PATENT, INFUSING D5W AT 100ML/HR PER EMAR WITH NO S/S OF INFILTRATION. CALL LIGHT WITHIN REACH, BED IN LOW POSITION. WILL CONTINUE TO MONITOR.
[2018-10-30 20:51] VITALS: BP 102/70
--- NOTE | 2018-10-31 00:15 | NUR ---
PT RESTING IN NO ACUTE DISTRESS. RR EVEN AND UNLABORED. IV PATENT AND INFUSING WELL WITH NO S/S OF INFILTRATION. CALL LIGHT WITHIN REACH, BED IN LOW POSITION. WILL CONTINUE TO MONITOR.
[2018-10-31 05:48] VITALS: BP 95/54
[2018-10-31 06:38] LABS: BASOPHIL % 0.4 % (0-2)
[2018-10-31 06:40] LABS: CALCIUM 8.9 mg/dL (8.5-10.1); CARBON DIOXIDE 29.4 mmol/L (21-32); CHLORIDE SERUM 114 mmol/L (98-107); GFR1 > 60 mL/min; GLUCOSE SERUM 333 mg/dL (74-106); POTASSIUM SERUM 3.9 mmol/L (3.5-5.1); SODIUM SERUM 150 mmol/L (136-145)
--- NOTE | 2018-10-31 07:10 | NUR ---
RECEIVED PT FROM NOC TRACIE AZUL. PT AA/OX4. NO S/S OF ACUTE DISTRESS. DENIES PAIN AT THIS TIME. NO SOB ON ROOM AIR. RR EVEN/UNLABORED. CHEST EXPANSION SYMMETRICAL. IV WNL TO LH, IV FLUIDS FLOWING. NO REDNESS, NO SWELLING, NO INFILTRATION. PT CALM/COOPERATIVE. SPEAKS AMERICAN. BED IN LOW POSITION. CALL LIGHT WITHIN REACH. WILL CONT. TO MONITOR.
[2018-10-31 07:33] LABS: PLATELET COUNT 96 x10^3mcL (130-400); RED CELL DISTRIBUTION WIDTH 14.6 % (11.5-14.5)
[2018-10-31 08:18] VITALS: BP 101/69
--- NOTE | 2018-10-31 09:29 | NUR ---
BLOOD SUGAR AFTER PT ATE BREAKFAST 406, RECHECKED, 436. PT GIVEN AM LEVEMIR PER PHYSICIAN DOSE. NO [place]. NO DIZZINESS. NO N/V. NO SOB ON ROOM AIR. VISION WNL. PT CALM/COOPERATIVE LAYING IN BED. NO CHEST PAIN. WILL NOTIFY INFORMATION AND DATA ARCHITECT ANALYST ROLAND OF BLOOD SUGAR. BED IN LOW POSITION. CALL LIGHT WITHIN REACH. WILL CONT. TO MONITOR.
--- NOTE | 2018-10-31 12:06 | NUR ---
PT LAYING IN BED. AA/OX4. NO S/S OF ACUTE DISTRESS. DENIES ABD. PAIN. NO N/V. NO DIZZINESS. NO [place]. NO SOB ON ROOM AIR. NO CHEST PAIN. PT CALM/COOPERATIVE. BED IN LOW POSITION. CALL LIGHT WITHIN REACH. WILL CONT. TO MONITOR.
--- NOTE | 2018-10-31 12:20 | NUR ---
DIABETIC TEACHING GIVEN. PT VERBALIZED UNDERSTANDING. REPEAT DEMONSTRATION PERFORMED BY PT.
[2018-10-31 16:17] VITALS: BP 97/72
--- NOTE | 2018-10-31 18:34 | NUR ---
PT AMBULATORY TO RESTROOM, GAIT STEADY. VOIDS FREELY. AA/OX4. DENIES PAIN. NO SOB ON ROOM AIR. NO CHEST PAIN. NO ABD. PAIN. NO N/V. PT CALM/COOPERATIVE. PT LAYING IN BED. IV WNL TO LH, NO REDNESS, NO SWELLING, NO INFILTRATION. PT CALM/COOPERATIVE. BED IN LOW POSITION. CALL LIGHT WITHIN REACH. WILL ENDORSE TO ONCOMING SHIFT.
--- NOTE | 2018-10-31 19:41 | NUR ---
RECEIVED PT FROM PREVIOUS SHIFT. PT A/OX4. DENIES PAIN. DENIES SOB ON RA. IV PATENT AND INFUSING D5W AT 100ML/HR TO L HAND WITH NO S/S OF INFILTRATION. CALL LIGHT WITHIN REACH, BED IN LOW POSITION. WILL CONTINUE TO MONITOR.
[2018-10-31 20:58] VITALS: BP 105/69
[2018-11-01 05:16] VITALS: BP 105/66
[2018-11-01 07:12] LABS: BASOPHIL % 0.3 % (0-2)
[2018-11-01 07:15] LABS: PLATELET COUNT 129 x10^3mcL (130-400); RED CELL DISTRIBUTION WIDTH 14.7 % (11.5-14.5)
[2018-11-01 07:22] LABS: CALCIUM 9.3 mg/dL (8.5-10.1); CARBON DIOXIDE 28.5 mmol/L (21-32); CHLORIDE SERUM 119 mmol/L (98-107); CREATININE SERUM 0.9 mg/dL (0.6-1.0); GFR1 > 60 mL/min; GLUCOSE SERUM 246 mg/dL (74-106); POTASSIUM SERUM 3.4 mmol/L (3.5-5.1); SODIUM SERUM 156 mmol/L (136-145)
--- NOTE | 2018-11-01 08:53 | NUR ---
PASSED MORNING MEDICATIONS, PT TOLERATED WELL. EFFORTLESS BREATHING ON ROOM AIR. DENIES PAIN, NAUSEA. IV PATENT ANF INFUSING WELL TO LEFT HAND#24 BED IN LOWEST POSITION, CALL LIGHT WITHIN REACH. WILL CONTINUE TO MONITOR.
[2018-11-01 09:52] VITALS: BP 100/64
[2018-11-01] MEDS ORDERED: LEVEMIR100 U/M1 SC (11:27)
--- NOTE | 2018-11-01 11:54 | NUR ---
ACCU CHECK:[id number]- RECHECK: 538 TIP SCOURER ROLAND MADE AWARE OF RESULT. WILL COVER PER SLIDING SCALE.
--- NOTE | 2018-11-01 12:08 | NUR ---
COVERED BLOOD GLUCOSE PER SLIDING SCALE. PT TOLERATED WELL. BUFFET WAITER/WAITRESS AWARE. CALL LIGHT WITHIN REACH.
[2018-11-01 13:45] VITALS: BP 100/64
--- NOTE | 2018-11-01 14:28 | NUR ---
DISCHARGE INSTRUCTIONS GIVEN TO PT AND . BOTH VERBALIZED UNDERSTANDING FOR FOLLOW-UP APPOINTAMENT, AND PRESCRIPTION ORDERS. BLOOD GLUCOSE 443 PT DENIES NAUSEA, VOMITING, CHILLS. SPINNING MULE OPERATOR ROLAND AWARE. IV CATHETER DC'D, INTACT, NO PHLEBITIS. EDUCATION MATERIAL PROVIDED. PT TO CALL WHEN READY TO BE TRANSPOPRTED OUT OF UNIT.
--- NOTE | 2018-11-01 15:04 | NUR ---
Initial Nutrition Assessment Dx: Hyperosmolar, Hyperkalemia PMHx: DM PSHx: None Labs: (11/01) Na 156H, K 3.4L, BG 246H, BUN 11, Cr 0.9, A1c 11.1H, WBC 6, H/H 12.4/37 BG readings (10/30-11/01): 216-538 mg/dL, with all readings >180 mg/dL. Meds: D5%, D50%, Humulin, K-Phos Neutral, Levemir, Tylenol, Zofran Diet: [facility] PO Intake: (11/01) B: 100% (10/31-) all meals 100% Ht: 59" (150 cm) Wt: 154# (69.9 kg) BMI: 31.1 (Obese Class I) IBW: 98# %IBW: 157% AJBW: 112# (50.9 kg) UBW: 150# Age: 42 y/o female Food Allergies: NKFA Skin: Intact Ke[place]an: 22 Edema: None GI: Last BM x 3 (11/01) Per H&P, pt. admitted with generalized weakness x 5 days associated with increased urination and thirst. Pt. has history of DM and has been inconsistent with her home medication regimen d/t GI side effects from medications (Metformin). Na levels have been trending upwards per EXHIBIT CLEANER, discussed at bed huddles. Pt. seen sitting at bedside during visit. Reports excellent appetite and good tolerance to diet. No GI distress at this time. Endorses that she has not been compliant with her DM medications because every time she would take them, she would have N/V. She also admits to consuming processed foods and snacks on a regular basis. [facility] diet education was provided during visit. Problem with: No c/o N/V/D/C Problems with: Chewing: N Swallowing: N Current appetite: Excellent Recent wt change: None %wt change: N/A Vitamin/Supplement use: None Special diet at home: Regular Physical activity: None Education: Notified pt. of [facility] diet and associated restrictions. Emphasized the importance of following [facility] diet[facility] guidelines for optimal BG control. Provided [facility] diet education handout. Estimated Nutritional Needs Based on adjusted body weight 50.9 kg: Energy: 2349-1641 kcal/d (22-24 kcal/kg- weight maintenance for obesity) Protein: 41-51 g/d (0.8-1.0 g/kg)-maintenance and preservation of lean body mass Fluid: 6705-5336 ml/d (1 ml/kcal-fluid balance) or per doctor Nutrition Diagnosis 1. Altered nutrition related laboratory values r/t endocrine dysfunction and reported non-compliance with pertinent medications AEB BG readings >180 mg/dL x 24 hrs and measured A1c 11.1%. Intervention/RD recommendations 1. Continue CCHO diet as ordered and as tolerated. Monitor/Evaluate Goal: PO intake at least 75% of estimated needs Monitor: PO intake, Labs, GI function, diet tolerance, BG levels F/U in 3-5 days as moderate risk 11/04-11/06
--- NOTE | 2018-11-01 15:05 | NUR ---
Intervention/RD recommendations 1. Continue CCHO diet as ordered and as tolerated.
--- NOTE | 2018-11-01 15:42 | NUR ---
ON DISCHARGE PT VOICED THAT METFORMIN SUPPLY AT HOME WAS NEAR EMPTY 2[employer]OTAL. SUPPLY TECH CONTACTED AND INFORMED, PRESCRIPTION FILLED BY DR. THOMAS, PER SUPPLY TECH ROLAND. PT TRANSPORTED OUT OF UNIT.
== END 2018-11-01 15:41 | disposition home or self-care (01) | DRG 426 ==
LOC: ED 13:07 → IC 18:24 → EDBEDREQ 18:25 → IC 20:34 → MU 10-27 12:21
PROVIDERS: Emergency Medicine; ADMIT Internal Medicine
DX: E87.0 Hyperosmolality and hypernatremia (principal); N17.0 Acute kidney failure with tubular necrosis; E11.00 Type 2 diabetes mellitus with hyperosmolarity without nonketotic hyperglycemic-hyperosmolar coma (NKHHC); D68.69 Other thrombophilia; E83.41 Hypermagnesemia; E83.39 Other disorders of phosphorus metabolism; E86.0 Dehydration; E87.6 Hypokalemia; E78.5 Hyperlipidemia, unspecified; Z68.29 Body mass index [BMI] 29.0-29.9, adult; Z79.84 Long term (current) use of oral hypoglycemic drugs
CPT/HCPCS: 36600; 82962; J0696; J1815; J2405; J7030; J7070; Q0092